=== PATIENT | female | born 1970 | race Caucasian/White ===

== ENCOUNTER 2019-03-29 18:11 | Emergency (ER) | payer BC ==
[~2019-03-29] VITALS: Ht 175.3 cm; Wt 122.0 kg
[2019-03-29] MEDS ORDERED: XANAX1 MG PO (18:23)
[2019-03-29] MEDS ORDERED: LOPRESSOR25 PO (18:23)
[2019-03-29] MEDS ORDERED: ZOCOR20 MG PO (18:24)
[2019-03-29] MEDS ORDERED: PROZAC20 MG PO (18:24)
[2019-03-29] MEDS ORDERED: MOBIC15 MG PO (18:24)
[2019-03-29] MEDS ORDERED: TOPAMAX 100 MG100 MG PO (18:24)
[2019-03-29] MEDS ORDERED: VITAMIN D1000 UNI2 PO (18:25)
[2019-03-29] MEDS ORDERED: CLARITIN10 MG PO (18:25)
[2019-03-29] MEDS ORDERED: ZANTAC 150MG T150 MG PO (18:25)
[2019-03-29 18:37] LABS: URINE BILIRUBIN NEGATIVE (Negative); URINE BLOOD 2+ (Negative); URINE CLARITY CLEAR; URINE COLOR YELLOW; URINE GLUCOSE-RANDOM 3+ (Negative); URINE KETONES NEGATIVE (Negative); URINE LEUKOCYTES-REFLEX NEGATIVE (Negative); URINE NITRITE-REFLEX NEGATIVE (Negative); URINE PROTEIN TRACE (Negative); URINE UROBILINOGEN 0.2 E.U./dl (0.2-1.0)
[2019-03-29 18:48] LABS: SQUAMOUS >10 Many /LPF (0-3)
[2019-03-29 18:49] LABS: CASTS None Seen /LPF (None Seen); MUCUS None Seen strn/LPF (None Seen); URINE WBC-REFLEX >25 Many /HPF (0-5); WBC CLUMPS Few (None Seen)
[2019-03-29 18:50] LABS: CRYSTALS None Seen /LPF (None Seen); URINE RBC 3-10 Few /HPF (0-2); YEAST-REFLEX Present (None Seen)
[2019-03-29 18:51] LABS: BACTERIA-REFLEX 1-9 Few /HPF (None Seen)
[2019-03-29 18:56] LABS: ABSOLUTE BASOPHILS 0.1 thou/uL (0.0-0.2); ABSOLUTE EOSINOPHILS 0.1 thou/uL (0.0-0.7); ABSOLUTE LYMPHOCYTES 1.2 thou/uL (0.8-5.3); ABSOLUTE MONOCYTES 0.4 thou/uL (0.0-1.2); ABSOLUTE NEUTROPHILS 9.9 thou/uL (1.6-8.1); BASOPHILS 0.8 %; EOSINOPHILS 0.9 %; HEMATOCRIT 44.8 % (37.0-47.0); HEMOGLOBIN 14.9 gm/dL (12.0-15.0); MCH 30.5 pg (26.0-34.0); MCHC 33.2 g/dL (28.0-37.0); MCV 91.7 fL (80.0-100.0); MONOCYTES 3.4 %; MPV 7.8 fl. (7.2-11.1); NUCLEATED RBCS 0 /100WBC; PLATELET COUNT* 259 thou/uL (150-400); POLYS 84.9 %; RBC 4.89 mil/uL (4.20-5.00); RDW-CV 13.3 % (10.5-14.5); WBC 11.7 thou/uL (4.0-11.0)
[2019-03-29 19:10] LABS: CALCIUM 8.9 mg/dL (8.5-10.1); CREATININE 1.2 mg/dL (0.6-1.3); POTASSIUM 3.8 mmol/L (3.5-5.1)
[2019-03-29 19:15] LABS: ALBUMIN 3.4 g/dL (3.4-5.0); TOTAL BILIRUBIN 0.3 mg/dL (<0.1-1.0); TOTAL PROTEIN 8.1 g/dL (6.4-8.2)
[2019-03-29] MEDS ORDERED: FLOMAX0.4 MG PO (21:17)
[2019-03-29] MEDS ORDERED: ZOFRAN ODT4 MG PO (21:17)
[2019-03-29] MEDS ORDERED: HYDROCODON-ACE1 EAC7 PO (21:17)
[2019-03-29 22:29] VITALS: BP 147/94
== END 2019-03-29 22:31 | disposition home or self-care (01) ==
LOC: M.ERS 18:11
PROVIDERS: Emergency Medicine Emergency Medical Services
DX: R10.32 Left lower quadrant pain (principal); E86.0 Dehydration; E78.5 Hyperlipidemia, unspecified; F41.9 Anxiety disorder, unspecified; F31.9 Bipolar disorder, unspecified; G43.909 Migraine, unspecified, not intractable, without status migrainosus